=== PATIENT | male | born 1965 | race Caucasian/White ===

== ENCOUNTER 2018-07-13 10:21 | Emergency (ER) | payer OTHER ==
[~2018-07-13] VITALS: Ht 167.6 cm; Wt 91.6 kg
[2018-07-13 10:26] VITALS: Ht 167.6 cm; Wt 91.6 kg
[2018-07-13 12:10] VITALS: BP 109/61
== END 2018-07-13 12:10 | disposition home or self-care (01) ==
LOC: ED 10:21
DX: S62.631A Displaced fracture of distal phalanx of left index finger, initial encounter for closed fracture (principal); S61.211A Laceration without foreign body of left index finger without damage to nail, initial encounter; X58.XXXA Exposure to other specified factors, initial encounter; Y93.89 Activity, other specified; Y92.89 Other specified places as the place of occurrence of the external cause; Y99.8 Other external cause status
CPT/HCPCS: 90715; A4570; J2001; Q0092